=== PATIENT | male | born 1930 ===

== ENCOUNTER 2017-09-13 08:52 | Outpatient (CLI) | payer MEDICARE, OTHER ==
--- NOTE | 2017-09-13 11:50 | PRG ---
DATE OF SERVICE: 09/13/2017 CHIEF COMPLAINT: Wound nonhealing to the right foot. HISTORY OF PRESENT ILLNESS: An 87-year-old male who presents today with a wound to his right foot. He says it has been there for approximately 2 months. He says it started as a small black spot, has increased in size. He had been dressing with mupirocin ointment and has seen minimal improvement. R elates that the wound is painful to the touch. He does have a history of diabetes for 15 years and s ays blood sugars are moderately well controlled. PAST MEDICAL HISTORY/PAST SURGICAL HISTORY/MEDICATIONS/ ALLERGIES/SOCIAL HISTORY/FAMILY HISTORY: Rev iewed. It is documented in his paper wound care chart and I agree with the documentation. REVIEW OF SYSTEMS: CONSTITUTIONAL: Denies nausea, vomiting, fevers or chills. INTEGUMENT: Relates wound to the right dorsal midfoot. NEURO: Denies numbness or tingling sensations in the feet. CARDIOVASCULAR: Relates cold sensations to the feet, but no claudication symptoms. PHYSICAL EXAMINATION: VITAL SIGNS: Temperature 97.6, pulse 59, respirations 17, blood pressure 143/76. Blood sugar was 13 1. CARDIOVASCULAR: Dorsalis pedis and posterior tibial pulses are nonpalpable. Skin temperature is implementation project coordinator l to touch. There is absent hair growth. Slight violaceous hue to the skin. No swelling present. NEUROLOGICAL: Light touch protective sensation is intact. DERMATOLOGIC: Ulcer to the dorsal midfoot area. The right foot measures 1.5 cm x 1.8 cm x 0.1 cm de pth. There is 100% slough with a yellowish black discoloration. No malodor, no periwound erythema, edema or warmth. No purulent drainage. ASSESSMENT: 1. 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 2. Peripheral vascular disease with type 2 diabetes. PLAN: 1. We are going to start with Santyl dressing changes on a daily basis. 2. Referral to Dr. Johnson for a vascular evaluation and intervention as necessary. 3. The patient will follow up with me in 2 weeks.
[2017-09-13] MEDS ORDERED: Sodium Chloride 0.9% 15 ML NEB ONE (14:47)
== END 2017-09-13 08:53 | disposition home or self-care (01) ==
LOC: WCC 08:52
PROVIDERS: ATTEND Podiatrist Foot & Ankle Surgery
DX: E11.621 Type 2 diabetes mellitus with foot ulcer (principal); L97.519 Non-pressure chronic ulcer of other part of right foot with unspecified severity; I73.9 Peripheral vascular disease, unspecified
CPT/HCPCS: 36416; A4218

== ENCOUNTER 2017-09-27 10:11 | Outpatient (CLI) | payer MEDICARE, OTHER ==
--- NOTE | 2017-09-27 11:04 | PRG ---
DATE OF SERVICE: 09/27/2017 SUBJECTIVE: An 87-year-old male returns today for followup right dorsal foot ulceration. He has bee n using Santyl on the wound for the last 2 weeks. No problems with the ulceration. Denies nausea, v omiting, fevers, chills. Does have a corn on the plantar aspect of the right fifth metatarsal head w hich we will need to check today. PHYSICAL EXAMINATION: Ulcer to the right dorsal midfoot measuring 1.4 cm x 1.5 cm x 0.1 cm of depth. There is 100% slough and eschar. There is some mild periwound maceration. No periwound erythema, edema or warmth. Plantar aspect of the right fifth metatarsal head has a callus which we will remove , there was a pinpoint 0.1 mm diameter ulceration superficial depth, no periwound erythema, edema, or warmth, no drainage. ASSESSMENT: 1. Non-pressure chronic ulcerations to the right foot. 2. Peripheral vascular disease. PLAN: 1. We did send the consultation for Dr. Johnson although they informed me today that he has an appoint ment set up with his transport rn and is going to have them run the test and evaluate his circulation . 2. We are going to continue with the Santyl dressing change on the dorsal wound. I discussed the ne ed for improved blood flow for this wound to heal. 3. Plantar ulceration can be covered with a dry bandage. I expect the callus to be removed from thi s area for this to heal without incident. 4. The patient will follow up with me in 2 weeks.
== END 2017-09-27 10:12 | disposition home or self-care (01) ==
LOC: WCC 10:11
PROVIDERS: ATTEND Podiatrist Foot & Ankle Surgery
DX: L97.519 Non-pressure chronic ulcer of other part of right foot with unspecified severity (principal); I73.9 Peripheral vascular disease, unspecified
CPT/HCPCS: 97602

== ENCOUNTER 2017-10-18 08:21 | Outpatient (CLI) | payer MEDICARE, OTHER ==
--- NOTE | 2017-10-18 11:23 | PRG ---
DATE OF SERVICE: 10/18/2017 SUBJECTIVE: An 87-year-old male returns today for followup right dorsal midfoot wound. He has been using Santyl daily and a Band-Aid, although ran out of Santyl recently, has not put any on in the las t 5 days or so. Denies any nausea, vomiting, fevers or chills. The son indicates that he has an calvin ointment to follow up to discuss revascularization of his right lower extremity in the next 1-2 weeks . PHYSICAL EXAMINATION: Ulceration remains on the dorsal aspect of the right mid foot measuring 1.2 cm x 1.3 cm, 100% slough/eschar which has a yellow/black coloration. There is some mild periwound eryt vince, but no ascending lymphangitis and does not extend beyond the periwound area. Mild tenderness t o palpation. No drainage, no malodor. No warmth. ASSESSMENT: 1. Non-pressure chronic ulceration to the right dorsal midfoot. 2. Peripheral vascular disease. PLAN: 1. We are going to continue with the Santyl dressing change and make sure that he has a refill on hi s medication so that he can continue with this and cover with a dry bandage. 2. I suspect that he will require some revascularization before this will heal quickly. We will follow up with him in 3 weeks or sooner should he have problems before that time. Hopefully, at that time he will have had some sort of revascularization procedure.
[2017-10-18] MEDS ORDERED: Sodium Chloride 0.9% 15 ML NEB ONE (18:01)
== END 2017-10-18 08:22 | disposition home or self-care (01) ==
LOC: WCC 08:21
PROVIDERS: ATTEND Podiatrist Foot & Ankle Surgery
DX: L97.419 Non-pressure chronic ulcer of right heel and midfoot with unspecified severity (principal); I73.9 Peripheral vascular disease, unspecified
CPT/HCPCS: A4218